=== PATIENT | female | born 1990 | race Caucasian/White ===

== ENCOUNTER 2016-11-17 14:15 | Inpatient (IN) | payer OTHER ==
[2016-11-17 15:00] VITALS: BMI 41.2
[2016-11-17] MEDS ORDERED: CITRIC ACID/SODIUM CITRATE 30 ML UNIT-DOSE CUP PO ONE (15:04)
--- NOTE | 2016-11-17 15:10 | HP ---
Past Medical History - Primary Care Physician PCP:: Florentino Sung - Admission Chief Complaint: 41 weeks, previous c/s , request of c/s History of Present Illness: 25 yo f g 5 p2022. edc by sono 11/12/16 with previous c/s request of repeat c/s rba discussed, cx clp, vx -4. fhr cat1 History Source: Patient Limitations to Obtaining History: No Limitations - Past Medical History ...: 5 ...Para: 2 ...Term: 2 ...: 0 ...Spon : 0 ...Induced : 2 ...Multiple Gestation: 0 ...LMP: 02/11/16 ... Weeks Gestation by Dates: 40.0 ...EDC by Dates: 11/17/16 [facility] Infectious Disease: Yes: STD's (hx of chlamydia) - Past Surgical History Hx Myomectomy: No Hx Transabdominal Cerclage: No - Smoking History Smoking history: Never smoked Have you smoked in the past 12 months: No - Alcohol/Substance Use Hx Alcohol Use: No - Social History History of Recent Travel: No Home Medications - Allergies Allergies/Adverse Reactions: Allergies Allergy/AdvReac Type Severity Reaction Status Date / Time No Known Allergies Allergy Verified 11/17/16 14:34 - Home Medications Home Medications: Ambulatory Orders Pnv95/Ferrous Fumarate/FA [ Vitamin Tablet] 1 each PO DAILY 11/16/16 Review of Systems - Review of Systems Constitutional: reports: No Symptoms Eyes: reports: No Symptoms HENT: reports: No Symptoms Neck: reports: No Symptoms Cardiovascular: reports: No Symptoms Respiratory: reports: No Symptoms Gastrointestinal: reports: No Symptoms Genitourinary: reports: No Symptoms Breasts: reports: No Symptoms Reported Musculoskeletal: reports: No Symptoms Integumentary: reports: No Symptoms Neurological: reports: No Symptoms Endocrine: reports: No Symptoms Hematology/Lymphatic: reports: No Symptoms Psychiatric: reports: No Symptoms Physical Exam - Maternity Vital Signs: Vital Signs Temperature 98.1 F 11/17/16 14:43 Pulse Rate 85 11/17/16 14:43 Respiratory Rate 18 11/17/16 14:43 Blood Pressure 130/65 11/17/16 14:43 O2 Sat by Pulse Oximetry (%) Constitutional: Yes: Well Nourished, No Distress, Calm Eyes: Yes: WNL, Conjunctiva Clear, EOM Intact HENT: Yes: WNL, Atraumatic, Normocephalic Neck: Yes: WNL, Supple, Trachea Midline Cardiovascular: Yes: WNL, Regular Rate and Rhythm Breast(s): Yes: WNL - Abdominal Exam/OB Fundal Height: 40 Number of Fetuses: Single Presentation: Vertex Contractions: No Intensity: Unaware Monitor Mode: External Heart Rate Location: [facility] Category: I Accelerations: Uniform Decelerations: None - Vaginal Exam/OB Vaginal Bleediing: No Speculum Exam: No Dilatation (cm): 0 Effacement (%): 0 Amniotic Membrane Status: Intact Presentation: Vertex/Position Station: -4 - Physical Exam Musculoskeletal: Yes: WNL Extremities: Yes: WNL Edema: LLE: Trace, RLE: Trace Deep Tendon Reflex Grade: Normal +2 Hemorrhage Risk Assessment - Risk Factors Medium Risk Factors: Yes: Prior , uterine surgery,or multiple laparotomies Risk Score: 1 Risk Level: Medium Risk Problem List - Problems (1) Post term , 41 weeks Code(s): O48.0 - POST-TERM Z3A.41 - 41 WEEKS GESTATION OF (2) Previous section complicating Code(s): O34.21 - MATERNAL CARE FOR SCAR FROM PREVIOUS * DO NOT USE * Assessment/Plan admit for repeat c/s, rba discussed
[2016-11-17] MEDS ORDERED: ELECTROLYTE-148 SOLN 1,000 ML IV SCH (15:15)
[2016-11-17] MEDS ORDERED: ELECTROLYTE-148 SOLN 1,000 ML IV ONE (15:29)
[2016-11-17] MEDS ORDERED: IBUPROFEN 800 MG/8 ML IJ IVPB PRN ×2 (16:37→17:05)
[2016-11-17] MEDS ORDERED: METHYLERGONOVINE MALEATE 0.2 MG/1 ML AMP IM PRN (16:37)
[2016-11-17] MEDS ORDERED: WITCH HAZEL 50% (TUCKS) 40 PAD/JAR PAD TP PRN (16:37)
[2016-11-17] MEDS ORDERED: BENZOCAINE 20% 57 GM BOTTLE TP PRN (16:37)
[2016-11-17] MEDS ORDERED: BENZOCAINE 28 GM HEMORRHOIDAL OINTMENT PR PRN (16:37)
[2016-11-17] MEDS ORDERED: diphenhydrAMINE HCL 25 MG CAPSULE (FP) PO PRN (16:37)
[2016-11-17] MEDS ORDERED: oxyCODONE HCL 5 MG TABLET PO PRN ×2 (16:37)
[2016-11-17 16:42] LABS: ARTERIAL BLD GAS O2 SATURATION 17.7 % (90-98.9); ARTERIAL BLOOD GAS BASE EXCESS -2.7 meq/l (-2-2); ARTERIAL BLOOD GAS HCO3 24.3 meq/L (22-26); ARTERIAL BLOOD GAS PO2 11.5 mmHg (80-100); ARTERIAL BLOOD GAS pH 7.29 (7.35-7.45)
[2016-11-17] MEDS ORDERED: OXYTOCIN 20 UNITS in 0.9% NS 1,000 ML IV SCH (16:45)
[2016-11-17 16:53] LABS: ARTERIAL BLD GAS O2 SATURATION 62.4 % (90-98.9); ARTERIAL BLOOD GAS BASE EXCESS -2.3 meq/l (-2-2); ARTERIAL BLOOD GAS HCO3 22.7 meq/L (22-26); ARTERIAL BLOOD GAS pH 7.35 (7.35-7.45)
[2016-11-17] MEDS ORDERED: ONDANSETRON 4 MG/2 ML VIAL IVPUSH PRN (17:06)
[2016-11-18] MEDS: CEFAZOLIN (PRE-DOCKED) 50 ML IVPB SCH ×2 (00:23→07:18)
[2016-11-18] MEDS: DEXTROSE 5%-LACTATED RINGERS 1,000 ML IV SCH ×2 (04:15)
[2016-11-18 08:36] LABS: BASOPHIL 0.3 % (0-2.0); MCH 29.7 pg (25.7-33.7); MCHC 33.6 g/dl (32.0-36.0); MEAN CELL VOLUME 88.6 fl (80-96); MEAN PLT VOLUME 7.7 fl (7.5-11.1); NEUTROPHILS 70.7 % (42.8-82.8); PLATELET COUNT 206 K/MM3 (134-434); RDW 14.6 % (11.6-15.6); WHITE BLOOD COUNT 7.9 K/mm3 (4.0-10.0)
[2016-11-18] MEDS: ENOXAPARIN NA (PORCINE) 40 MG/0.4 ML DISP.SYRIN SQ SCH (09:14)
[2016-11-18] MEDS: SIMETHICONE 80 MG TAB.CHEW (FP) PO PRN ×2 (09:14→18:35)
[2016-11-18] MEDS: IBUPROFEN 600 MG TABLET (FP) PO PRN ×2 (09:14→18:34)
--- NOTE | 2016-11-18 09:15 | PN ---
Post Progress Note - Subjective Subjective: c/o pain scale of 4/10 Post Day: 1 Type of Delivery: Repeat C/S Vital Signs: Vital Signs Temperature 98.8 F 11/18/16 09:04 Pulse Rate 20 L 11/18/16 09:04 Respiratory Rate 18 11/18/16 09:04 Blood Pressure 111/66 11/18/16 09:04 O2 Sat by Pulse Oximetry (%) 99 11/17/16 18:05 Breast Exam: Yes: Soft, Other (BF ). No: Engorged Uterus: Yes: Fundus Firm, Fundus below umbilicus, Non-tender Incision: Yes: Dressing dry and intact. No: Oozing Abdomen/GI: Yes: Abdomen soft, Tender, Tolerating PO (clear liquids ). No: Abdominal Distention, Passing flatus Lochia: Yes: Rubra Lochia, amount: Moderate Extremities: Yes: Calves non-tender, Edema Perineum: Yes: Intact Activity: Other (not oob yet ) - Labs Labs: CBC WBC 7.9 K/mm3 (4.0-10.0) 11/18/16 07:20 RBC 2.96 M/mm3 (3.60-5.2) L 11/18/16 07:20 Hgb 8.8 GM/dL (10.7-15.3) L D 11/18/16 07:20 Hct 26.2 % (32.4-45.2) L 11/18/16 07:20 MCV 88.6 fl (80-96) 11/18/16 07:20 MCHC 33.6 g/dl (32.0-36.0) 11/18/16 07:20 RDW 14.6 % (11.6-15.6) 11/18/16 07:20 Plt Count 206 K/MM3 (134-434) D 11/18/16 07:20 MPV 7.7 fl (7.5-11.1) 11/18/16 07:20 Neutrophils % 70.7 % (42.8-82.8) 11/18/16 07:20 Lymphocytes % 20.9 % (8-40) D 11/18/16 07:20 Monocytes % 6.1 % (3.8-10.2) 11/18/16 07:20 Eosinophils % 2.0 % (0-4.5) 11/18/16 07:20 Basophils % 0.3 % (0-2.0) 11/18/16 07:20 Other Findings, Remarks: i/o ok Assessment/Plan po c/s , stable. Anemia plan ct po care
[2016-11-18] MEDS: PRENATAL VITAMINS W/ FOLIC ACID TABLET (FP) PO SCH (09:16)
[2016-11-18] MEDS ORDERED: BISACODYL 10 MG SUPP.RECT RC PRN (16:37)
[2016-11-18] MEDS: ACETAMINOPHEN 325 MG TABLET (FP) PO PRN (18:34)
--- NOTE | 2016-11-18 18:45 | PN ---
Progress Note, Physician Chief Complaint: Pt. ambulating and voiding. Pain controlled, no CRESPO. - Current Medication List Current Medications: Active Medications Acetaminophen (Tylenol -) 650 mg PO Q4H PRN PRN Reason: FEVER OR PAIN Last Admin: 11/18/16 18:34 Dose: 650 mg Benzocaine (Americaine Ointment -) 1 applic MT PRN PRN PRN Reason: PAIN Benzocaine (Americaine 20% [place] -) 1 spray TP PRN PRN PRN Reason: PAIN Bisacodyl (Dulcolax Suppository -) 10 mg RC PRN PRN PRN Reason: CONSTIPATION Diphenhydramine HCl (Benadryl -) 25 mg PO Q8H PRN PRN Reason: FOR ITCHING Diphenhydramine HCl (Benadryl Injection -) 25 mg IVPUSH Q4H PRN PRN Reason: itching Enoxaparin Sodium (Lovenox -) 40 mg SQ DAILY [facility] Last Admin: 11/18/16 09:14 Dose: 40 mg Parenteral Electrolytes (Plasma-Lyte 148 -) 1,000 mls @ 125 mls/hr IV ASDIR [facility] Last Admin: 11/17/16 15:30 Dose: 125 mls/hr Dextrose/Lactated Ringer's (D5-Lr -) 1,000 mls @ 125 mls/hr IV ASDIR [facility] Last Admin: 11/18/16 04:15 Dose: 125 mls/hr Ibuprofen (Motrin -) 600 mg PO Q4H PRN PRN Reason: PAIN Last Admin: 11/18/16 18:34 Dose: 600 mg Methylergonovine Maleate (Methergine Injection -) 0.2 mg IM Q4H PRN PRN Reason: EXCESSIVE BLEEDING Oxycodone HCl (Roxicodone -) 5 mg PO Q4H PRN PRN Reason: PAIN LEVEL 1-5 Oxycodone HCl (Roxicodone -) 10 mg PO Q4H PRN PRN Reason: PAIN LEVEL 6-10 Multivit/Folic Acid/Iron ( Vitamins (Sjr) -) 1 tab PO DAILY [facility] Last Admin: 11/18/16 09:16 Dose: Not Given Senna/Docusate Sodium (Pericolace -) 2 tablet PO HS PRN PRN Reason: CONSTIPATION Simethicone (Mylicon -) 80 mg PO Q4H PRN PRN Reason: GAS Last Admin: 11/18/16 18:35 Dose: 80 mg Witch Jessica/Glycerin (Tucks Pads -) 1 pad TP PRN PRN PRN Reason: PAIN - Objective Vital Signs: Vital Signs Temperature 98.2 F 11/18/16 13:43 Pulse Rate 74 11/18/16 13:43 Respiratory Rate 16 11/18/16 16:00 Blood Pressure 122/62 11/18/16 13:43 O2 Sat by Pulse Oximetry (%) 99 11/17/16 18:05 Constitutional: Yes: Well Nourished, No Distress, Calm Musculoskeletal: Yes: WNL Neurological: Yes: WNL, Alert, Oriented ...Motor Strength: WNL Labs: CBC, BMP 11/18/16 07:20 Assessment/Plan POD#1 s/p repeat under spinal with duramorph. D/C from anesthesia care.
--- NOTE | 2016-11-19 01:07 | PN ---
Post Progress Note Post Day: 2 Type of Delivery: Repeat C/S Vital Signs: Vital Signs Temperature 98.6 F 11/18/16 21:38 Pulse Rate 75 11/18/16 21:38 Respiratory Rate 20 11/18/16 21:38 Blood Pressure 133/75 11/18/16 21:38 O2 Sat by Pulse Oximetry (%) 99 11/17/16 18:05 Breast Exam: Yes: Soft Uterus: Yes: Fundus Firm Incision: Yes: Dressing dry and intact Abdomen/GI: Yes: Abdomen soft Lochia: Yes: Rubra Lochia, amount: Small Extremities: Yes: Calves non-tender Perineum: Yes: Intact Activity: Ambulating - Labs Labs: CBC WBC 7.9 K/mm3 (4.0-10.0) 11/18/16 07:20 RBC 2.96 M/mm3 (3.60-5.2) L 11/18/16 07:20 Hgb 8.8 GM/dL (10.7-15.3) L D 11/18/16 07:20 Hct 26.2 % (32.4-45.2) L 11/18/16 07:20 MCV 88.6 fl (80-96) 11/18/16 07:20 MCHC 33.6 g/dl (32.0-36.0) 11/18/16 07:20 RDW 14.6 % (11.6-15.6) 11/18/16 07:20 Plt Count 206 K/MM3 (134-434) D 11/18/16 07:20 MPV 7.7 fl (7.5-11.1) 11/18/16 07:20 Neutrophils % 70.7 % (42.8-82.8) 11/18/16 07:20 Lymphocytes % 20.9 % (8-40) D 11/18/16 07:20 Monocytes % 6.1 % (3.8-10.2) 11/18/16 07:20 Eosinophils % 2.0 % (0-4.5) 11/18/16 07:20 Basophils % 0.3 % (0-2.0) 11/18/16 07:20 Assessment/Plan as above pain control oob may shower check labs
[2016-11-19] MEDS: IBUPROFEN 600 MG TABLET (FP) PO PRN ×3 (05:58→19:27)
[2016-11-19] MEDS: SIMETHICONE 80 MG TAB.CHEW (FP) PO PRN ×3 (05:58→19:27)
[2016-11-19] MEDS: ACETAMINOPHEN 325 MG TABLET (FP) PO PRN ×3 (05:59→19:28)
[2016-11-19] MEDS: ENOXAPARIN NA (PORCINE) 40 MG/0.4 ML DISP.SYRIN SQ SCH (09:05)
[2016-11-19] MEDS: PRENATAL VITAMINS W/ FOLIC ACID TABLET (FP) PO SCH (09:05)
[2016-11-19] MEDS ORDERED: SENNOSIDES/DOCUSATE COMBO (SENNA PLUS) TABLET (UD) PO PRN (22:00)
--- NOTE | 2016-11-20 00:05 | PN ---
Post Progress Note Post Day: 3 Type of Delivery: Repeat C/S Vital Signs: Vital Signs Temperature 98.4 F 11/19/16 22:12 Pulse Rate 74 11/19/16 22:12 Respiratory Rate 20 11/19/16 22:12 Blood Pressure 135/77 11/19/16 22:12 O2 Sat by Pulse Oximetry (%) 99 11/17/16 18:05 Breast Exam: Yes: Soft Uterus: Yes: Fundus Firm Incision: Yes: Sutures intact Abdomen/GI: Yes: Abdomen soft Lochia: Yes: Rubra Lochia, amount: Small Extremities: Yes: Calves non-tender Perineum: Yes: Intact Activity: Ambulating - Labs Labs: CBC WBC 7.9 K/mm3 (4.0-10.0) 11/18/16 07:20 RBC 2.96 M/mm3 (3.60-5.2) L 11/18/16 07:20 Hgb 8.8 GM/dL (10.7-15.3) L D 11/18/16 07:20 Hct 26.2 % (32.4-45.2) L 11/18/16 07:20 MCV 88.6 fl (80-96) 11/18/16 07:20 MCHC 33.6 g/dl (32.0-36.0) 11/18/16 07:20 RDW 14.6 % (11.6-15.6) 11/18/16 07:20 Plt Count 206 K/MM3 (134-434) D 11/18/16 07:20 MPV 7.7 fl (7.5-11.1) 11/18/16 07:20 Neutrophils % 70.7 % (42.8-82.8) 11/18/16 07:20 Lymphocytes % 20.9 % (8-40) D 11/18/16 07:20 Monocytes % 6.1 % (3.8-10.2) 11/18/16 07:20 Eosinophils % 2.0 % (0-4.5) 11/18/16 07:20 Basophils % 0.3 % (0-2.0) 11/18/16 07:20 Assessment/Plan oob reg diet dc home
[2016-11-20 07:42] LABS: BASOPHIL 0.3 % (0-2.0); EOSINOPHIL 3.9 % (0-4.5); MCH 29.5 pg (25.7-33.7); MCHC 33.6 g/dl (32.0-36.0); MEAN CELL VOLUME 87.7 fl (80-96); MEAN PLT VOLUME 7.3 fl (7.5-11.1); PLATELET COUNT 212 K/MM3 (134-434); RDW 14.8 % (11.6-15.6); WHITE BLOOD COUNT 8.6 K/mm3 (4.0-10.0)
[2016-11-20] MEDS: SIMETHICONE 80 MG TAB.CHEW (FP) PO PRN ×2 (09:27→18:26)
[2016-11-20] MEDS: ENOXAPARIN NA (PORCINE) 40 MG/0.4 ML DISP.SYRIN SQ SCH (09:27)
[2016-11-20] MEDS: PRENATAL VITAMINS W/ FOLIC ACID TABLET (FP) PO SCH (09:27)
[2016-11-20] MEDS: IBUPROFEN 600 MG TABLET (FP) PO PRN ×2 (09:30→18:27)
[2016-11-20] MEDS: ACETAMINOPHEN 325 MG TABLET (FP) PO PRN ×2 (09:31→18:26)
--- NOTE | 2016-11-20 15:48 | DS ---
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 Vital Signs: Vital Signs Temperature 98.1 F 11/20/16 08:04 Pulse Rate 79 11/20/16 08:04 Respiratory Rate 20 11/20/16 08:04 Blood Pressure 118/76 11/20/16 08:04 O2 Sat by Pulse Oximetry (%) 99 11/17/16 18:05 Constitutional: Yes: Well Nourished, No Distress, Calm Eyes: Yes: WNL, Conjunctiva Clear, EOM Intact HENT: Yes: WNL, Atraumatic, Normocephalic Neck: Yes: WNL, Supple, Trachea Midline Cardiovascular: Yes: WNL, Regular Rate and Rhythm Respiratory: Yes: WNL, Regular, CTA Bilaterally Gastrointestinal: Yes: WNL ...Rectal Exam: Yes: WNL Renal/: Yes: WNL ....Post : Yes: Uterus firm, Uterus non-tender, Slight lochia rubra Breast(s): Yes: WNL Musculoskeletal: Yes: WNL Extremities: Yes: WNL Integumentary: Yes: WNL Wound/Incision: Yes: Clean/Dry, Well Approximated, Sutures Intact Neurological: Yes: WNL, Alert, Oriented ...Motor Strength: WNL Psychiatric: Yes: WNL, Alert, Oriented Labs: CBC, BMP 11/20/16 06:00 Delivery - Delivery Section: Repeat, Low Flap Transverse (no complication) Type of Anesthesia: Spinal Episiotomy/Laceration: None EBL (cc): 500 Delivery, Single - Stages of Labor Date of Delivery: 11/17/16 Time of Delivery: 16:10 Time Placenta Delivered: 16:11 Placenta: Yes: Expressed - 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 excessive vaginal bleeding or increased incisional pain return to clinic in 2 weeks. call [facility] for appointment. [phone] Referrals: Maximus Orozco MD [Staff Physician] - Disposition: HOME - Home Medications Comprehensive Discharge Medication List: Ambulatory Orders Pnv95/Ferrous Fumarate/FA [ Vitamin Tablet] 1 each PO DAILY 11/16/16 Ibuprofen [Motrin -] 600 mg PO TID #21 tablet 11/19/16
[2016-11-20 22:25] VITALS: TEMP 97.5
--- NOTE | 2016-11-21 06:06 | OP ---
DATE OF OPERATION: 11/17/2016 PREOPERATIVE DIAGNOSIS: , 40 weeks, previous section, request for repeat section. POSTOPERATIVE DIAGNOSIS: , 40 weeks, previous section, request for repeat section. PROCEDURE: Repeat low segment transverse section. SURGEON: Florentino Sung MD ANESTHESIA: Spinal. ESTIMATED BLOOD LOSS: 500 mL. OPERATION: The patient was taken to the operating room, had adequate spinal anesthesia. Abdomen and perineum were prepped and draped. Pfannenstiel abdominal skin incision was made. Abdominal wall was cut layer by layer until peritoneum was exposed and incised. Upon entering the abdominal cavity, lower uterine segment was identified, and uterovesical fold of peritoneum was established, bladder was pushed down. Then, with the lower blade of the Chuy retractor in the pelvis, a low transverse uterine incision was made. Incision extended laterally. Amniotic sac was entered. Head delivered. Nasopharynx was suctioned. Live baby was delivered without any difficulty. Placenta was delivered manually. Uterine cavity was cleaned of all remaining tissue. Uterine incision was closed in 2 layers, 1st layer with 0 Biosyn continuous suture, the 2nd layer with 0 Biosyn imbricating the 1st layer. Bladder flap was closed with 0 Biosyn continuous suture. Both tubes and ovaries were checked, were normal. No active bleeding was seen. All the lap pad, sponge, and instrument counts were correct. Then, peritoneum was closed with 0 Biosyn continuous suture. Muscles were brought together with interrupted suture of 0 Biosyn. Fascia was closed with 0 Biosyn continuous suture, subcutaneous fat with interrupted suture of 0 Biosyn, and skin was closed with 4-0 Biosyn subcuticular continuous suture. Patient tolerated the procedure well, left the OR in good condition. FLORENTINO SUNG M.D. [id number]
[2016-11-21 09:06] VITALS: BP 135/83; PULSE 82
[2016-11-21] MEDS: ENOXAPARIN NA (PORCINE) 40 MG/0.4 ML DISP.SYRIN SQ SCH (10:18)
[2016-11-21] MEDS: PRENATAL VITAMINS W/ FOLIC ACID TABLET (FP) PO SCH (10:18)
--- NOTE | 2016-11-21 10:54 | PN ---
Progress Note (short form) - Note Progress Note: pod 4 doing well, no c/o, no excess vaginal bleeding, no dizziness. has fever blister on her lower lips CBC, BMP 11/20/16 06:00 Last Vital Signs Temp Pulse Resp BP Pulse Ox 97.5 F L 82 20 135/83 99 11/21/16 08:40 11/21/16 08:40 11/21/16 08:40 11/21/16 08:40 11/17/16 18:05 abdomen soft, no distension, no cva , incision dry, clean no calf tenderness plan d/c home on po iron, vit , rtc 1 week, instruction given acycolvir bid for 5 days Problem List - Problems (1) Post term , 41 weeks Code(s): O48.0 - POST-TERM Z3A.41 - 41 WEEKS GESTATION OF (2) Previous section complicating Code(s): O34.21 - MATERNAL CARE FOR SCAR FROM PREVIOUS * DO NOT USE *
--- NOTE | 2016-11-24 15:40 | PATH ---
Surgical Pathology Report Patient Name: KATE CASTANO [facility]. Rec. 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 Specimen(s) Received PLACENTA Clinical History , 41 weeks, x1, induced AB x2, c/section x1-08/27 Repeat c/section Final Diagnosis PLACENTA, DELIVERY: FOCALLY DISRUPTED, SMALL (<400 GM), THIRD TRIMESTER PLACENTA WITH MILD INCREASE IN PREVILLOUS, PERIVILLOUS, AND PRECHORIONIC FIBRIN DEPOSITION, THREE VESSEL UMBILICAL CORD, AND PLACENTAL MEMBRANES WITH MECONIUM HISTIOCYTOSIS. Electronically Signed Johnathon Moyer M.D. Gross Description The specimen is received fresh, labeled "placenta" and is a 398 gram, 23.0 x 12.5 x 1.7 cm placenta with attached membranes and umbilical cord. The attached membranes are norman-green, meconium stained, thickened and insert marginally. The umbilical cord measures 18.5 cm in length and averages 1 cm in diameter. The cord inserts centrally. No true knots or strictures are identified. Cut surface of the umbilical cord reveals 3 vessels. The surface is small-green, meconium stained with fibrin deposition and appropriate caliber vessels. The maternal surface is red-brown with focal defects. Sectioning reveals red-brown, spongy parenchyma. No focal lesions are identified. Calibration Technician sections are submitted in three cassettes as follows: 1- membrane rolls and umbilical cord; 2-3- full thickness sections of placenta. /11/23/2016 saudi11/23/2016
== END 2016-11-21 12:50 | disposition home or self-care (01) | DRG 540 ==
LOC: JLDR 14:15 → J3W 18:26
PROVIDERS: ADMIT Obstetrics & Gynecology; ATTEND Obstetrics & Gynecology
PROC: 10D00Z1 Extraction of Products of Conception, Low, Open Approach (ICD-10-PCS; principal; 2016-11-17)
DX: O48.0 Post-term pregnancy (principal); Z3A.41 41 weeks gestation of pregnancy; O34.211 Maternal care for low transverse scar from previous cesarean delivery; Z37.0 Single live birth
CPT/HCPCS: 36415; 36600; 82803; 85025; 88307-TC